=== PATIENT | female | born 1980 ===

== ENCOUNTER 2017-08-17 05:39 | Inpatient (IN) | payer OTHER ==
[2017-08-17] MEDS ORDERED: LIDOCAINE 1% 2 ML INJ ONE (06:06)
[2017-08-17] MEDS ORDERED: LR 1,000 ML IV ONE (06:18)
[2017-08-17] MEDS ORDERED: ACETAMINOPHEN 500 MG TAB PO ONE (06:20)
[2017-08-17] MEDS ORDERED: ceFAZolin 3 GM in D5W 100 ML IV ONE (06:20)
[2017-08-17] MEDS ORDERED: MIDAZOLAM 2 MG/2 ML VIAL IVP ONE (06:49)
[2017-08-17] MEDS ORDERED: IPRATROPIUM/ALBUTEROL 3 ML DEYVIAL IH PRN (06:49)
--- NOTE | 2017-08-17 06:53 | PDANEPAE ---
ANE History of Present Illness presents for transsphenoidal resection of pituitary ANE Past Medical History - Cardiovascular History Hx Hypertension: No Hx Arrhythmias: No Hx Chest Pain: No Hx Coronary Artery / Peripheral Vascular Disease: No Hx CHF / Valvular Disease: No Hx Palpitations: No - Pulmonary History Hx COPD: No Hx Asthma/Reactive Airway Disease: Yes Hx Recent Upper Respiratory Infection: No Hx Oxygen in Use at Home: No Hx Sleep Apnea: No Sleep Apnea Screening Result - Last Documented: Negative Pulmonary History Comment: asthma- hasn't used inhaler in a month or two. change of weather effects it more - Neurologic History Hx Cerebrovascular Accident: No Hx Seizures: No Hx Dementia: No Neurologic History Comment: current pituitary tumor - Endocrine History Hx Diabetes: No Obesity: yes, severe - Renal History Hx Renal Disorders: No - Liver History Hx Hepatic Disorders: No - Neurological & Psychiatric Hx Hx Neurological and Psychiatric Disorders: No - Cancer History Hx Cancer: No - Congenital Disorder History Hx Congenital Disorders: No - GI History GERD: moderate Hx Gastrointestinal Disorders: Yes Gastrointestinal History Comment: reflux - Other Health History Other Health History: wears glasses - Chronic Pain History Chronic Pain: No - Surgical History Prior Surgeries: right ankle surgery. ANE Review of Systems Review of systems is: negative Review of Systems: - Exercise capacity METS (RN): 4 METS ANE Patient History - Allergies Allergies/Adverse Reactions: No Known Allergies Allergy (Verified 07/21/17 10:45) - Home Medications Home medications: home medication list seen and reviewed Home Medications: Budesonide/Formoterol Fumarate [Symbicort 80-4.5 Mcg Inhaler] 1 puffs IH DAILY PRN 07/16/17 [Last Taken 08/16/17] Omeprazole [Prilosec 20 mg] 40 mg PO DAILY 07/16/17 [Last Taken 08/17/17 05:00] - NPO status NPO Since - Liquids (Date): 08/16/17 NPO Since - Liquids (Time): 19:30 NPO Since - Solids (Date): 08/16/17 NPO Since - Solids (Time): 19:30 - Anes Hx Anes Hx: no prior problems - Smoking Hx Smoking Status: Never smoked - Family Anes Hx Family Hx Anesthesia Complications: none ANE Labs/Vital Signs - Vital Signs Blood Pressure: 130/86 Heart Rate: 101 Respiratory Rate: 15 O2 Sat (%): 92 Height: 162.56 cm Weight: 129.274 kg ANE Physical Exam - Airway Neck exam: FROM Mallampati Score: Class 3 Mouth exam: small mouth opening - Pulmonary Pulmonary: no respiratory distress - Cardiovascular Cardiovascular: regular rate and rhythym - ASA Status ASA Status: III ANE Anesthesia Plan Anesthesia Plan: general endotracheal anesthesia Lines/Monitors: arterial line Specialized Airway: video laryngoscope Urgent/Emergent Case: Francia flores completed preop but documented later for safe timely pt care
[2017-08-17] MEDS ORDERED: fentaNYL 100 MCG/2 ML INJ ONE ×4 (06:56→11:14)
[2017-08-17] MEDS ORDERED: PROPOFOL 200 MG/20 ML VIAL ONE ×2 (06:56)
[2017-08-17] MEDS ORDERED: ceFAZolin 2 GM/SWFI 2 GM/20 ML SYR IVP ONE (07:00)
[2017-08-17] MEDS ORDERED: REMIFENTANIL HCL 1 MG VIAL ONE ×2 (07:00→09:33)
[2017-08-17 07:03] LABS: PLATELET COUNT 258 10^3/uL (150-400)
[2017-08-17] MEDS ORDERED: ROCURONIUM 50 MG/5 ML VIAL ONE (07:03)
[2017-08-17] MEDS ORDERED: LIDOCAINE 2% 5 ML SDV ONE (07:03)
[2017-08-17] MEDS ORDERED: LIDOCAINE 1% 300 MG/30 ML SDV ONE (07:17)
[2017-08-17] MEDS ORDERED: BACITRACIN ZINC 14.2 GM OINTTUBE TP ONE (07:18)
[2017-08-17] MEDS ORDERED: THROMBIN (BOVINE) 5,000 UNIT VIAL TP ONE ×2 (07:18→10:14)
[2017-08-17] MEDS ORDERED: METHYLENE BLUE 0.5% 50 MG/10 ML AMP ONE ×2 (07:18→09:05)
[2017-08-17] MEDS ORDERED: EPINEPHrine 30 MG/30 ML MDV ONE (07:29)
--- NOTE | 2017-08-17 08:03 | PDHPUP ---
History & Physical Update H&P update statement: This history and physical update is based on an assessment of the patient which was completed after admission or registration (within 24 hours), but prior to the surgery/procedure. H&P update: H&P reviewed & patient examined, no change in patient's condition since H&P completed
[2017-08-17] MEDS ORDERED: ONDANSETRON 4 MG/2 ML VIAL ONE (09:36)
[2017-08-17] MEDS ORDERED: HYDROmorphONE/DILAUDID 2 MG/ML INJ ONE (09:55)
[2017-08-17] MEDS ORDERED: NALOXONE HCL 0.4 MG/ML INJ IVP PRN (10:13)
[2017-08-17] MEDS ORDERED: ONDANSETRON 4 MG/2 ML VIAL IVP PRN ×2 (10:13→10:30)
[2017-08-17] MEDS ORDERED: LABETALOL HCL 50 MG/10 ML SYR IVP PRN (10:13)
[2017-08-17] MEDS ORDERED: OXYCODONE/APAP 5/325 TAB PO PRN (10:13)
[2017-08-17] MEDS ORDERED: PROMETHAZINE HCL 25 MG/ML INJ IVP PRN (10:13)
[2017-08-17] MEDS ORDERED: NS 500 ML IV PRN (10:13)
[2017-08-17] MEDS ORDERED: DEXAMETHASONE 4 MG/ML VIAL IVP PRN (10:13)
[2017-08-17] MEDS ORDERED: ALBUTEROL 3 ML DEYVIAL IH PRN (10:13)
[2017-08-17] MEDS ORDERED: ACETAMINOPHEN 500 MG TAB PO PRN (10:13)
[2017-08-17] MEDS ORDERED: NS W/ 20 KCl/L 1,000 ML IV SCH (10:30)
[2017-08-17] MEDS ORDERED: MAGNESIUM HYDROXIDE 30 ML UDCUP PO PRN (10:30)
[2017-08-17] MEDS ORDERED: HYDROmorphONE/DILAUDID 1 MG/ML INJ IVP PRN (10:30)
[2017-08-17] MEDS ORDERED: LACTULOSE 20 GM/30 ML UDCUP PO PRN (10:30)
[2017-08-17] MEDS ORDERED: POLYETHYLENE GLYCOL 3350 17 GM PKT PO PRN (10:30)
[2017-08-17] MEDS ORDERED: BISACODYL 10 MG SUPP PR PRN (10:30)
[2017-08-17] MEDS ORDERED: ONDANSETRON DISINTEGRATING 4 MG TAB PO PRN (10:30)
[2017-08-17] MEDS ORDERED: SURGIFLO MATRIX KIT WITH THROMBIN TP ONE (10:35)
[2017-08-17] MEDS ORDERED: BUDESONIDE/FORMOTEROL 80/4.5 60 PUFFS/MDI IH PRN (10:46)
--- NOTE | 2017-08-17 11:06 | POSTOPPROG ---
Post Op Note Date of Operation: 08/17/17 Surgeon: Aline Wright Oracle Database Administrator: Second surgeon Dr. Alba Anesthesia: GET(General Endotracheal) Pre-op Diagnosis: pituitary macroadenoma Post-op Diagnosis: same Procedure: Transphenoidal resection of pituitary adenoma Inf/Abcess present in the surg proc area at time of surgery?: No Depth: Organ Space Complications: None. See dictated operative report for full details SOAP Progress Note Assessment/Plan: Assessment: Plan: 08/17/17 10:51 S: Patient in PACU. Stable with expected nasal pain. O: NAD, VSS PERRL, EOMI No drip seen from nose CN II-XII grossly intact No droop SOUSA X 4 A: 37 yo male sp transphenoidal resection of pituitary macroadenoma P: -Admit to ICU -Advance diet as tolerated -monitor STRICT I's and O's- If Urine output > 250 per hour or > 400 in 2 hours , order STAT serum Na and USG and call the PA-C with the results. -On Hydrocortisone taper X 3 days -Will get nasal stent out by Dr. Alba next week -SBP < 140 -HOB at 30 degrees -watch for CSF leak - PT.OT -DCT: TEDs, SCD, Heparin ok after Head CT reviewed on POD #2 - 08/17/17 11:47 08/17/17 11:47 Objective: Vital Signs Temp Pulse Resp BP Pulse Ox 37 C 101 H 15 130/86 H 92 08/17/17 06:21 08/17/17 06:53 08/17/17 06:53 08/17/17 06:53 08/17/17 06:53 Laboratory Results 08/17/17 06:50
--- NOTE | 2017-08-17 11:15 | POSTANESTH ---
Post Anesthetic Evaluation Cardiovascular Status: Normal, Stable Respiratory Status: Normal, Stable Level of Consciousness/Mental Status: Can Participate in Eval Pain Control: Adequate, Prn Tx Ordered Nausea/Vomiting Control: Adequate, Prn Tx Ordered Complications Possibly Related to Anesthesia: None Noted
[2017-08-17] MEDS: fentaNYL 100 MCG/2 ML INJ IVP PRN ×2 (11:16→11:38)
[2017-08-17] MEDS ORDERED: HYDROmorphONE/DILAUDID 1 MG/ML INJ ONE (11:28)
[2017-08-17] MEDS: HYDROmorphONE/DILAUDID 1 MG/ML INJ IVP PRN ×2 (11:30→11:47)
[2017-08-17] MEDS ORDERED: HYDROCORTISONE 10 MG TAB PO SCH (12:00)
[2017-08-17] MEDS: OXYCODONE/APAP 5/325 TAB PO PRN (15:55)
[2017-08-17] MEDS: SENNOSIDES/DOCUSATE SODIUM TAB PO SCH (21:24)
[2017-08-17] MEDS: HYDROCORTISONE 10 MG TAB PO SCH (21:24)
--- NOTE | 2017-08-17 22:42 | GOP ---
[f rep st] OPERATIVE REPORT DATE OF OPERATION: 08/17/2017 SURGEON: Barry Daniels MD NEUROSURGEON: Barry Daniles MD. PREOPERATIVE DIAGNOSIS: Pituitary mass. POSTOPERATIVE DIAGNOSIS: Pituitary mass. PROCEDURE PERFORMED: 1. Endoscopic transsphenoidal resection of pituitary tumor. 2. Stealth stereotactic neuronavigation for volumetric gross total resection of tumor. FINDINGS: Successful pituitary resection. SPECIMENS: Pituitary tumor. ESTIMATED BLOOD LOSS: 50 cc. DESCRIPTION OF PROCEDURE: After informed consent was obtained from the patient, the patient was brou ght to the operating room and was placed in supine position on the operating table. A formal time-ou t was performed, identifying the patient by name, medical record number, and date of . Preopera tive antibiotics were given. 100 mg of hydrocortisone was given and the endotracheal tube was placed and general endotracheal anesthesia was smoothly induced. All appropriate lines were placed by Francia ashraf. The nose was then prepped and draped in the normal sterile fashion. The Stealth unit was re gistered to the scalp using known surface landmarks and checked for accuracy. Dr. Alba began the beginning of the procedure, and her note would be under a separate dictation for the approach, but sh chuy identified both sphenoid ostia, elevated a right-sided nasoseptal flap and performed a wide sphenoi dectomy. The tumor was visualized coming through the sellar floor with only very thin bone covering it and after the wide sphenoidotomy was performed the dura was opened sharply in a cruciate fashion. 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 We then u sed ring curettes to remove the remaining tumor from the area around the cavernous sinuses and inferi humberto 1st before progressing toward the dorsum sella and then superiorly last. The arachnoid was well visualized protruding down into the sella. Careful inspection was used to be sure that the tumor wa s removed from within the sellar confines and I did not see any signs of any residual tumor. In the posterior corner, yellowish tissue which appeared to be the normal pituitary gland was visualized. Nitza benedict Stealth was then used to check our position several times throughout the case and no more pituitar y tumor was visualized. At this point, a few pieces of Gelfoam were placed into the dural opening at the sella and some DuraSeal was placed over this opening. The sphenoid sinus was packed with some G elfoam and this was again covered with DuraSeal to hold it in place. At this point, Dr. Alba came back and replaced the nasoseptal flap into its normal position, given that we did not have a CSF alexander k and had no reason to use it. She then placed a Macias splint into the nose. The nose was copiously irrigated using bacitracin irrigation. The patient was then awakened in the operating room where sh e was extubated, and transferred to the PACU in stable condition. There were no operative complicati ons. I was scrubbed and present for the entire procedure as was Dr. Alba. CO-SURGEON: Deneen Alba MD. BRIEF CLINICAL HISTORY: The patient is a 37-year-old woman who presented to our office after difficu lty with conception. In hindsight, she had some scans done several years back which actually did cleo w a pituitary mass but it was not recognized at that time. It was now seen that she has a large, wha t looks to be partially hemorrhagic pituitary mass. She did not have any visual field deficits. She was scheduled electively for surgery today. COUNTS: All sponge and needle counts were correct at the end the case. FLUIDS AND URINE OUTPUT: Per the Anesthesia record. COMPLICATIONS: There were no complications. DRAINS: There were no drains. /[id number]/MODL
[2017-08-18] MEDS: ACETAMINOPHEN 325 MG TAB PO PRN ×3 (03:21→17:49)
--- NOTE | 2017-08-18 07:10 | NEUSURGPN ---
Date of Surgery: 08/17/17 Post Op Day: 1 Assessment/Plan: Assessment: 37 yo male s/p transphenoidal resection of pituitary macroadenoma POD #1 Plan: -pt doing well this am -UO 1200/I: 1500 -Na this am was 138 -no nasal drip or dc -CT head reviewed-will check report when available -PT/OT ordered -no bleeding noted -advance diet as tolerated -monitor STRICT I's and O's- If Urine output > 250 per hour or > 400 in 2 hours , order STAT serum Na and USG and call the PA-C with the results -On Hydrocortisone taper X 3 days -Will get nasal stent out by Dr. Alba next week -SBP < 140 -HOB at 30 degrees -watch for CSF leak -DVT prophylaxis: TEDs, SCD, Heparin ok after Head CT reviewed on POD #2 -red flags reviewed -call with any questions or concerns Subjective: Awake and alert. NAD. Rested thru night. No neck/chest/abd or gu complaints. No f/c/n/v/d. Objective: NAD, AFVSS PERRLA, EOMI No d/c seen from nose CN II-XII grossly intact No droop SOUSA X 4 Neuro Check Frequency: per routine Urinary Catheter in Place: Yes Urinary Catheter Indication: Other (Use Comment) (to be removed this am) Catheter Insertion Date: 08/17/17 - Physician Discussed Patient with Dr.: Daniels Patient Seen by : Jeremiah Neurosurgery Physical Exam - Vitals, I&O, Labs I and O 08/17/17 08/18/17 08/19/17 05:59 05:59 05:59 Intake Total 4460 Output Total 3425 Balance 1035 Weight 129.274 kg Intake: Oral (ml) 2060 IV Intake (ml) 1500 IV Infused (ml) 900 Lr 1,000 ml @ Per 900 Protocol IV ONCE ONE Rx#: [id number] Output: Urine (ml) 3400 Catheter 3400 Estimated Blood Loss (ml) 25 Other: Intake Quantity Yes Sufficient Vital Signs Temp Pulse Resp BP Pulse Ox 36.6 C 77 12 117/73 96 08/18/17 06:00 08/18/17 06:00 08/18/17 06:00 08/18/17 06:00 08/18/17 06:00 Laboratory Results 08/17/17 06:50 08/18/17 05:25 ICD10 Worksheet Patient Problems: Problems Problem Status Onset Pituitary mass Acute Status post transsphenoidal pituitary resection Acute - ICD10 Problem Qualifiers (1) Pituitary mass (2) Status post transsphenoidal pituitary resection
[2017-08-18] MEDS ORDERED: HYDROCORTISONE 10 MG TAB PO SCH (09:00)
[2017-08-18] MEDS ORDERED: NON-FORMULARY NEW DRUG (Omeprazole [Prilosec 20 Mg] 40 MG) PO SCH (09:00)
[2017-08-18] MEDS: SENNOSIDES/DOCUSATE SODIUM TAB PO SCH ×2 (10:16→19:59)
[2017-08-18] MEDS: PANTOPRAZOLE SODIUM 40 MG TAB PO SCH (10:16)
[2017-08-18] MEDS: HYDROCORTISONE 10 MG TAB PO SCH ×2 (10:17→19:59)
--- NOTE | 2017-08-18 14:25 | ASMTCMCOM ---
CM Note CM Note Notes: Patient is POD #[address] pituitary tumor resection with Dr Daniels. She has been cleared by PT/OT for home. She lives independently with and family. No CM needs identified. Date Signed: 08/18/2017 02:25 PM Electronically Signed By:Ashley Amezcua RN
--- NOTE | 2017-08-18 17:26 | SOAPPROG ---
SOAP Progress Note Assessment/Plan: Assessment: POD1 TSS. Doing well, moved to floor. No leak sxs. C/o congestion which is normal. Went over CSF leak precautions to continue for next 6 weeks. I'll see her next Thursday. Ok to dc home from my standpoint whenever ok with NSGY Plan: 08/18/17 17:25 Subjective: Doing well, c/o congestion as well as anosmia. No leaking. Objective: AFVSS RA crusting B nares, no sig leaking or bleeding Vital Signs Temp Pulse Resp BP Pulse Ox 36.6 C 101 H 16 125/89 H 92 08/18/17 16:00 08/18/17 16:00 08/18/17 16:00 08/18/17 16:00 08/18/17 16:00 Laboratory Results 08/17/17 06:50 08/18/17 16:34 08/17/17 08/18/17 08/19/17 05:59 05:59 05:59 Intake Total 4460 3000 Output Total 6880 7990 Balance 1035 550 ICD10 Worksheet Patient Problems: Problems Problem Status Onset Pituitary mass Acute Status post transsphenoidal pituitary resection Acute
--- NOTE | 2017-08-18 17:26 | SOAPPROG ---
SOAP Progress Note Assessment/Plan: Assessment: POD1 TSS. Doing well, moved to floor. No leak sxs. C/o congestion which is normal. Went over CSF leak precautions to continue for next 6 weeks. I'll see her next Thursday. Ok to dc home from my standpoint whenever ok with NSGY Plan: 08/18/17 17:25 Subjective: Doing well, c/o congestion as well as anosmia. No leaking. Objective: AFVSS RA crusting B nares, no sig leaking or bleeding Vital Signs Temp Pulse Resp BP Pulse Ox 36.6 C 101 H 16 125/89 H 92 08/18/17 16:00 08/18/17 16:00 08/18/17 16:00 08/18/17 16:00 08/18/17 16:00 Laboratory Results 08/17/17 06:50 08/18/17 16:34 08/17/17 08/18/17 08/19/17 05:59 05:59 05:59 Intake Total 4460 3000 Output Total 6311 4800 Balance 1035 550 ICD10 Worksheet Patient Problems: Problems Problem Status Onset Pituitary mass Acute Status post transsphenoidal pituitary resection Acute
--- NOTE | 2017-08-18 17:26 | SOAPPROG ---
SOAP Progress Note Assessment/Plan: Assessment: POD1 TSS. Doing well, moved to floor. No leak sxs. C/o congestion which is normal. Went over CSF leak precautions to continue for next 6 weeks. I'll see her next Thursday. Ok to dc home from my standpoint whenever ok with NSGY Plan: 08/18/17 17:25 Subjective: Doing well, c/o congestion as well as anosmia. No leaking. Objective: AFVSS RA crusting B nares, no sig leaking or bleeding Vital Signs Temp Pulse Resp BP Pulse Ox 36.6 C 101 H 16 125/89 H 92 08/18/17 16:00 08/18/17 16:00 08/18/17 16:00 08/18/17 16:00 08/18/17 16:00 Laboratory Results 08/17/17 06:50 08/18/17 16:34 08/17/17 08/18/17 08/19/17 05:59 05:59 05:59 Intake Total 4460 3000 Output Total 5956 9820 Balance 1035 550 ICD10 Worksheet Patient Problems: Problems Problem Status Onset Pituitary mass Acute Status post transsphenoidal pituitary resection Acute
[2017-08-18 23:27] VITALS: RESP 16
[2017-08-19] MEDS: ACETAMINOPHEN 325 MG TAB PO PRN (04:15)
--- NOTE | 2017-08-19 07:12 | NEUSURGPN ---
Date of Surgery: 08/17/17 Post Op Day: 2 Assessment/Plan: Assessment: 37 yo male s/p transphenoidal resection of pituitary macroadenoma POD #2 Plan: -pt doing well this am -Na this am was 135 -no clear nasal drip or dc -post op CT head reviewed-ok -PT/OT-CPM -no bleeding noted -advance diet as tolerated -monitor STRICT I's and O's- If Urine output > 250 per hour or > 400 in 2 hours , order STAT serum Na and USG and call the PA-C with the results -On Hydrocortisone taper X 3 days -Will get nasal stent out by Dr. Alba next week -SBP < 140 -HOB at 30 degrees -watch for CSF leak -some lower abd distension per pt-bladder scan pending/UA pending/advance on bowel protocol-D/W DIRK Mallory -DVT prophylaxis: TEDs, SCD, Heparin ok after Head CT reviewed on POD #2 -red flags reviewed -call with any questions or concerns Subjective: Awake and alert. NAD. Eating/drinking and voiding. No f/c/n/v/d. No bennett/neck/ chest pain Objective: NAD, AFVSS PERRLA, EOMI No d/c seen from nose CN II-XII grossly intact No droop SOUSA X 4 Neuro Check Frequency: per routine Urinary Catheter in Place: No Catheter Insertion Date: 08/17/17 - Physician Discussed Patient with Dr.: Daniels Neurosurgery Physical Exam - Vitals, I&O, Labs I and O 08/18/17 08/19/17 08/20/17 05:59 05:59 05:59 Intake Total 4460 3550 Output Total 3425 2600 Balance 1035 950 Weight 129.274 kg Intake: Oral (ml) 2060 3550 IV Intake (ml) 1500 IV Infused (ml) 900 Lr 1,000 ml @ Per 900 Protocol IV ONCE ONE Rx#: [id number] Output: Urine (ml) 3400 2600 Catheter 3400 Toilet 2600 Estimated Blood Loss (ml) 25 Other: Intake Quantity Yes Yes Sufficient Number of Voids Toilet 1 Number of Stools Toilet 0 Vital Signs Temp Pulse Resp BP Pulse Ox 36.6 C 69 16 114/82 H 97 08/19/17 04:00 08/19/17 04:00 08/19/17 04:00 08/19/17 04:00 08/19/17 04:00 Laboratory Results 08/17/17 06:50 08/19/17 04:58 ICD10 Worksheet Patient Problems: Problems Problem Status Onset Pituitary mass Acute Status post transsphenoidal pituitary resection Acute - ICD10 Problem Qualifiers (1) Pituitary mass (2) Status post transsphenoidal pituitary resection
[2017-08-19 07:34] VITALS: TEMP 97.6
[2017-08-19] MEDS ORDERED: HYDROCORTISONE 10 MG TAB PO SCH (09:00)
[2017-08-19] MEDS: OXYCODONE/APAP 5/325 TAB PO PRN (09:04)
[2017-08-19] MEDS: SENNOSIDES/DOCUSATE SODIUM TAB PO SCH (09:04)
[2017-08-19] MEDS: PANTOPRAZOLE SODIUM 40 MG TAB PO SCH (09:05)
[2017-08-19 11:33] VITALS: BP 113/83; PULSE 69; O2SAT 96
--- NOTE | 2017-08-19 12:05 | SOAPPROG ---
SOAP Progress Note Assessment/Plan: Assessment: POD 2 TSS. Doing well, looks great, d/c home today. no abx though continue CSF leak precautions. RTC thursday to see me for R splint removal. Given instructions to call this weekend if has any issues Plan: 08/18/17 17:25 08/19/17 12:03 Subjective: Doing well, no issues, no leaking, still not smelling, c/o congestion Objective: AFVSS RA sitting up in bed no bleeding crusting B nares Vital Signs Temp Pulse Resp BP Pulse Ox 36.4 C 69 16 113/83 H 96 08/19/17 07:33 08/19/17 11:32 08/19/17 11:32 08/19/17 11:32 08/19/17 11:32 Laboratory Results 08/17/17 06:50 08/19/17 04:58 08/18/17 08/19/17 08/20/17 05:59 05:59 05:59 Intake Total 4460 3550 Output Total 3425 2600 300 Balance 1035 950 -300 ICD10 Worksheet Patient Problems: Problems Problem Status Onset Pituitary mass Acute Status post transsphenoidal pituitary resection Acute
--- NOTE | 2017-08-19 14:19 | GOP ---
[f rep st] OPERATIVE REPORT DATE OF OPERATION: 08/17/2017 SURGEON: Deneen Alba MD ANESTHESIA: General. PREOPERATIVE DIAGNOSIS: 1. Pituitary mass. 2. Infertility. POSTOPERATIVE DIAGNOSIS: 1. Pituitary mass. 2. Infertility. PROCEDURE PERFORMED: FINDINGS: Patient was found to have a very large pituitary tumor that was expanded into the sphenoid . The approach was done in the normal fashion, and Dr. Daniels removed the pituitary tumor, which will be dictated in a separate dictation. ESTIMATED BLOOD LOSS: Less than 50 cc. DESCRIPTION OF PROCEDURE: The patient was first seen in the preoperative area, where informed consen t was obtained. She was then brought back to the operating room, where Anesthesia sedated and intuba douglas her. A formal time-out was performed, and confirming patient name, MR number, and date of , as well as procedure. The patient was prepped and draped in a sterile fashion. After the bed was t urned 180 degrees, the [employer] fusion head piece was placed, and then it was registered, and confir med to tracking accurately. Once this was done, the nasal cavity was decongested with epinephrine-so aked pledgets bilaterally, and once this had sufficient time to act, this was removed. At this point , a 0-degree scope was used to evaluate the nasal cavity on both sides. She was slightly narrow on b oth sides, but had a somewhat deviated septum to the left. The inferior and middle turbinates were b oth outfractured bilaterally with the Lucas until I was able to visualize the superior turbinate. On ce this was done, epinephrine-soaked pledget was placed on each side in the superior meatus and then removed after about a minute. Once this was done, we then started on the left, and I took down the i nferior one-third portion of the superior turbinate with a straight Clinton-Cut and then cleaned this up with microdebrider. At this point, I was able to visualize the natural os of the sinus. This was co nfirmed using the Fusion guided suction, and once this was found, the mushroom punch was placed. Thi s was widened slightly, superiorly and laterally. We then did the exact same thing on the right side , and once we had identified the natural os on the right, a rescue flap technique was performed by ma prabhjot the superior incision of the nasoseptal flap from the superior aspect of the os out along the se ptum to about the midportion of the turbinate, and a slight back cut was made inferiorly at the anter ior portion of the incision. Once this was done, the nasal septal flap was elevated just from the castle perior aspect of the septum and then elevated off the inferior face of the sphenoid, thereby protecti ng the pedicle. At this point, a aide pledget was placed over the flap to protect it throughout the procedure. So, at this point, the sphenoid was widened superiorly, laterally and inferiorly down to the floor with the up and down-biting Kerrison rongeurs. I then also performed a posterior septecto my with a combination of straight Clinton-Cut, the Kerrison, as well as microdebrider, until I was able t o visualize the inner sinus septum. At this point, the inner sinus septum was taken down using a str aight Clinton-Cut and direct visualization with a 0 degree scope. The edges were cleaned up with the Ker rison until we had good visualization. We could see the entire sphenoid on both sides as well as the expanded sella with pituitary tumor, which was expanded significantly into the sphenoid sinus. The optic nerve and carotid arteries were both visualized. So at this point, I changed positions and cam e over to the left side of the bed, and I held the scope through the left side of the nose while Dr. Daniels worked through the right side to remove the pituitary tumor. This will be dictated in a separa te dictation. Once he was done with this, we did not have a CSF leak, and so he closed the area of t he defect with Gelfoam as well as DuraSeal. The septal flap was not necessary, and so at this point, I replaced the septal flap into its position along the right side of the posterior septum. The nasa l cavity was irrigated out copiously with normal saline and then suctioned clear. A Macias splint belkys t had been cut to size was placed along the right side of the septum to keep this flap intact and all ow healing. A 3-0 [address] was used to place a through and through stitch through the caudal portion of the septum, thereby securing the Macias splint. No other nasal packing was placed, so at this poin t, the patient was turned back over to Anesthesia, where she was awoken and extubated and taken to [facility] in stable condition. There were no complications, and she tolerated the procedure well. PROCEDURES: 1. Endoscopic transsphenoidal approach to the pituitary. 2. Stereotactic volumetric navigation of the paranasal sinuses and extradural skull base utilizing [employer] fusion system. CO-SURGEON: Barry Daniels MD COMPLICATIONS: None. /[id number]/MODL
--- NOTE | 2017-08-19 16:24 | ASDISCHSUM ---
Discharge Information Plan Status:Home with No Needs Medically Cleared to Leave: Discharge Date:08/19/2017 04:00 PM CM D/C Disposition:Home, Routine, Self-Care ADT D/C Disposition:Home, Routine, Self-Care Projected Discharge Date:08/19/2017 04:00 PM Transportation at D/C: Discharge Delay Reason: Follow-Up Date:08/19/2017 04:00 PM Discharge Slot: Final Diagnosis: Placement Information Patient Contact Information Contact Name:BRITTNEE Relationship: Address:[address] [place] [address] [facility] City:[facility] Phone: State/Zip Code:[place] [address] Email: Financial Information Financial Class:HMO and PPO Plans Primary Plan Desc:[employer] Primary Plan Number:[id number] Secondary Plan Desc: Secondary Plan Number: Assessment Information [facility] CM Progress Note CM Note CM Note Notes: Patient is POD #[address] pituitary tumor resection with Dr Daniels. She has been cleared by PT/OT for home. She lives independently with and family. No CM needs identified. Date Signed: 08/18/2017 02:25 PM Electronically Signed By:Ashley Amezcua RN Intervention Information
--- NOTE | 2017-08-19 16:24 | ASDISCHSUM ---
Discharge Information Plan Status:Home with No Needs Medically Cleared to Leave: Discharge Date:08/19/2017 04:00 PM CM D/C Disposition:Home, Routine, Self-Care ADT D/C Disposition:Home, Routine, Self-Care Projected Discharge Date:08/19/2017 04:00 PM Transportation at D/C: Discharge Delay Reason: Follow-Up Date:08/19/2017 04:00 PM Discharge Slot: Final Diagnosis: Placement Information Patient Contact Information Contact Name:BRITTNEE Relationship: Address:[address] [place] [address] [facility] City:[facility] Phone: State/Zip Code:[place] [address] Email: Financial Information Financial Class:HMO and PPO Plans Primary Plan Desc:[employer] Primary Plan Number:[id number] Secondary Plan Desc: Secondary Plan Number: Assessment Information [facility] CM Progress Note CM Note CM Note Notes: Patient is POD #[address] tumor resection with Dr Daniels. She has been cleared by PT/OT for home. She lives independently with and family. No CM needs identified. Date Signed: 08/18/2017 02:25 PM Electronically Signed By:Ashley Amezcua RN Intervention Information
--- NOTE | 2017-08-19 16:24 | ASDISCHSUM ---
Discharge Information Plan Status:Home with No Needs Medically Cleared to Leave: Discharge Date:08/19/2017 04:00 PM CM D/C Disposition:Home, Routine, Self-Care ADT D/C Disposition:Home, Routine, Self-Care Projected Discharge Date:08/19/2017 04:00 PM Transportation at D/C: Discharge Delay Reason: Follow-Up Date:08/19/2017 04:00 PM Discharge Slot: Final Diagnosis: Placement Information Patient Contact Information Contact Name:BRITTNEE Relationship: Address:[address] [place] [address] [facility] City:[facility] Phone: State/Zip Code:[place] [address] Email: Financial Information Financial Class:HMO and PPO Plans Primary Plan Desc:[employer] Primary Plan Number:[id number] Secondary Plan Desc: Secondary Plan Number: Assessment Information [facility] CM Progress Note CM Note CM Note Notes: Patient is POD #[address] resection with Dr Daniels. She has been cleared by PT/OT for home. She lives independently with and family. No CM needs identified. Date Signed: 08/18/2017 02:25 PM Electronically Signed By:Ashley Amezcua RN Intervention Information
== END 2017-08-19 16:00 | disposition home or self-care (01) | DRG 615 ==
LOC: F3N 05:39 → F2N 14:21 → F3N 08-18 12:55
PROVIDERS: ADMIT Neurological Surgery; ATTEND Neurological Surgery
DX: D35.2 Benign neoplasm of pituitary gland (principal); N97.9 Female infertility, unspecified
CPT/HCPCS: 97161-GP; 97165-GO; J0171; J0690; J1170; J2250; J2405; J2704; J3010; Q9968